=== PATIENT | female | born 1960 ===

== ENCOUNTER 2023-03-26 10:53 | Emergency (ER) | payer OTHER ==
--- NOTE | 2023-03-26 11:44 | ED Physician Documentation ---
PD HPI BACK PAIN - Stated complaint Stated Complaint: LWR BK PX - Chief complaint Chief Complaint: Back Pain - History obtained from History obtained from: Patient - Additional information Additional information: 63-year-old female presents with right lower back pain. This has been present for several days. No acute injury to patient's knowledge. She does not have a history of chronic back pain but does have a history of fibromyalgia, is on nightly tramadol and has been taking leftover cyclobenzaprine recently to try and alleviate the pain. She states that its at a 3 out of 10 in severity most of the time but occasionally shoots up to 7-10 out of 10. It is worse with movement and palpation. She has no saddle anesthesia, no lower extremity weakness or numbness, no bowel or bladder changes, no nausea or vomiting, no fever or chills, no rash. She has seen her PCP for this and had a CT scan a couple of days ago which reportedly showed only a chronic right pleural effusion for which she has Follow-up scheduled and states that she has had this for over a year. She states there was no kidney stone or other acute findings. Review of Systems Constitutional: reports: Reviewed and negative Respiratory: reports: Reviewed and negative GI: reports: Reviewed and negative : reports: Reviewed and negative Skin: reports: Reviewed and negative Musculoskeletal: reports: Back pain Neurologic: reports: Reviewed and negative PD PAST MEDICAL HISTORY - Past Medical History Past Medical History: Yes Other Past Medical History: Fibromyalgia - Present Medications Home Medications: Ambulatory Orders Medication Instructions Recorded Confirmed HYDROcod/ACETAM 5/325 [[place] 5/325] 1 - 2 tablet PO Q6H PRN #14 tablet 03/26/23 tiZANidine [Zanaflex] 4 mg PO Q8H #12 tablet 03/26/23 - Allergies Allergies/Adverse Reactions: Allergies Allergy/AdvReac Type Severity Reaction Status Date / Time nortriptyline Allergy Anaphylaxis Verified 03/26/23 11:10 PD ED PE NORMAL - Vitals Vital signs reviewed: Yes - General General: Alert and oriented X 3, No acute distress, Well developed/nourished - HEENT HEENT: Atraumatic, Pharynx benign - Cardiac Cardiac: RRR, No murmur - Respiratory Respiratory: No respiratory distress, Clear bilaterally - Abdomen Abdomen: Normal bowel sounds, Soft - Back Back: No CVA TTP, No spinal TTP, Other (right lower thorac and lumbar paravert muscle ttp w/o midline ttp. no rash. no cavat) - Derm Derm: Normal color, Warm and dry, No rash - Extremities Extremities: No deformity, No tenderness to palpate, Normal ROM s pain, No edema, No calf tenderness / cord - Neuro Neuro: Alert and oriented X 3 Eye Opening: Spontaneous Motor: Obeys Commands Verbal: Oriented GCS Score: 15 - Psych Psych: Normal mood, Normal affect Results - Vitals Vitals: Vital Signs - 24 hr 03/26/23 11:07 Temperature 36 C L Heart Rate 90 Respiratory 20 Rate Blood Pressure 120/79 O2 Saturation 99 Oxygen O2 Source Room air PD Medical Decision Making - ED course Complexity details: re-evaluated patient, considered differential, d/w patient ED course: 63-year-old female with a history of fibromyalgia presented with several days of lower back pain as described in HPI. She has already been evaluated by her PCP and had a CT scan which was apparently negative for kidney stone or other acute process but she does have a chronic pleural effusion which is being monitored. She presents now with ongoing lower back pain. is musculoskeletal in nature, reproducible with palpation and movement. She is otherwise well-appearing on physical exam with stable vital signs, low suspicion for other acute causes of her lower back pain including kidney stone, urinary tract infection, or other abdominal process given patient's lack of symptoms and reassuring previous exam by her PCP. I advised patient that lower back pain can take several weeks to improve and recommended ongoing supportive measures, we will give a 1 mg IM Dilaudid dose here as well as 5 mg of p.o. diazepam. Patient was cautioned on the potential side effects of these medications and I will discharge her home with a short course of hydrocodone to use during the day only as needed. Recommend she continue the meloxicam and other supportive measures, and follow- up with your primary doctor for this issue if no improvement in next couple weeks or return if worsening symptoms which were discussed with patient in detail. Departure - Departure Disposition: Home, Self Care Clinical Impression: Back pain Qualifiers: Back pain location: low back pain Chronicity: acute Back pain laterality: right Sciatica presence: without sciatica Qualified Code(s): M54.50 - Low back pain, unspecified Condition: Good Instructions: Low Back Pain Self Care Prescriptions: HYDROcod/ACETAM 5/325 [[place] 5/325] 1 - 2 tablet PO Q6H PRN #14 tablet PRN Reason: Pain tiZANidine [Zanaflex] 4 mg PO Q8H #12 tablet
[2023-03-26] MEDS ORDERED: HYDROmorphone 1 MG/ML CARPUJECT IM STA (12:19)
[2023-03-26] MEDS ORDERED: diazePAM 5 MG TABLET PO STA (12:20)
[2023-03-26 12:38] VITALS: BP 111/82
== END 2023-03-26 12:34 | disposition home or self-care (01) ==
LOC: ED 10:53
DX: M54.50 Low back pain, unspecified (principal)
CPT/HCPCS: 96372; 99283; A9270; J1170

== ENCOUNTER 2023-12-22 13:39 | Outpatient (CLI) | payer OTHER | END 2023-12-22 13:40 | disposition home or self-care (01) | LOC: DI 13:39 | PROVIDERS: ATTEND Family Medicine | DX: R06.9 Unspecified abnormalities of breathing (principal); R94.31 Abnormal electrocardiogram [ECG] [EKG]; R94.39 Abnormal result of other cardiovascular function study; Q33.2 Sequestration of lung | CPT/HCPCS: 93307 ==

== ENCOUNTER 2024-01-17 18:53 | Outpatient (CLI) | payer OTHER ==
--- NOTE | 2024-01-18 10:39 | Ultrasound Report ---
PROCEDURE: Pelvic w/Transvaginal INDICATIONS: PELVIS PAIN TECHNIQUE: Real-time scanning was performed of the pelvic organs, with image documentation. Additional endovagi nal scanning was necessary due to incomplete visualization of the adnexal and endometrial structures by transabdominal scanning. COMPARISON: None. FINDINGS: Uterus: Uterus is retroverted and normal in size at 7.9 x 2.6 x 4.0 cm. The myometrium is heterogen eous. The endometrium measures 2 mm in combined thickness. Small amount of free fluid is seen withi n the endometrial canal Ovaries: The right ovary measures 0.8 x 0.5 x 1.0 cm, with a calculated ovarian volume of 0.2 cc. T he left ovary measures 1.7 x 0.5 x 0.7 cm, with a calculated ovarian volume of 0.3 cc. The ovaries h ave a normal sonographic appearance. Less than 12 follicles can be seen in each ovary. No adnexal m asses are seen. No cystic lesions measuring greater than 3 cm. Other: No pathologic free abdominal or pelvic fluid. IMPRESSION: 1.No source for pelvic pain identified sonographically. 2.Endometrial thickness is within normal limits for age at 2 mm. Trace endometrial fluid. Reviewed by: Virgilio Hurley MD on 01/18/2024 10:37 AM PDT Approved by: Virgilio Hurley MD on 01/18/2024 10:37 AM PDT Station ID: [id number]
== END 2024-01-17 18:54 | disposition home or self-care (01) ==
LOC: DI 18:53
PROVIDERS: ATTEND Obstetrics & Gynecology
DX: R10.2 Pelvic and perineal pain (principal)